=== PATIENT | female | born 1995 | race African-American/Black ===

== ENCOUNTER 2017-03-04 14:18 | Outpatient (CLI) | payer MEDICAID ==
[2017-03-04 15:44] VITALS: BP 101/64
[2017-03-04 15:55] LABS: BASOPHILS # (AUTO) 0.1 10^3/uL (0.0-0.1); BASOPHILS % (AUTO) 0.9 %; EOSINOPHILS # (AUTO) 0.1 10^3/uL (0.0-0.7); EOSINOPHILS % (AUTO) 0.8 %; HCT - HEMATOCRIT 36.5 % (37.0-47.0); HGB - HEMOGLOBIN 12.1 g/dL (12.0-16.0); LYMPHOCYTES # (AUTO) 1.3 10^3/uL (1.5-3.5); LYMPHOCYTES % (AUTO) 17.9 %; MEAN CORPUSCULAR HEMOGLOBIN 28.4 pg (27.0-31.0); MEAN PLATELET VOLUME 9.3 fL (7.9-10.8); MONOCYTES # (AUTO) 0.8 10^3/uL (0.0-1.0); MONOCYTES % (AUTO) 10.5 %; NEUTROPHILS # (AUTO) 5.1 10^3/uL (1.5-6.6); NEUTROPHILS % (AUTO) 69.9 %; NUCLEATED RED BLOOD CELLS AUTO 0.1 /100WBC; RED BLOOD COUNT 4.25 10^6/uL (4.20-5.40); RED CELL DISTRIBUTION WIDTH 14.6 % (12.0-15.0); UNCORRECTED WHITE BLOOD COUNT 7.3 x10^3/uL; WHITE BLOOD COUNT 7.3 x10^3/uL (4.8-10.8)
[2017-03-04 16:14] LABS: PLATELET ESTIMATE, MANUAL NORMAL (130-450,000) (NORMAL); PLATELET MORPHOLOGY 1+ LARGE PLATELETS (NORMAL)
[2017-03-04 16:24] LABS: BILIRUBIN,URINE NEGATIVE (NEGATIVE); UA w/ MICROSCOPIC CHARGE YES
[2017-03-04 16:35] LABS: UR CULTURE IF IND INDICATED
--- NOTE | 2017-03-04 17:52 | Ultrasound Preliminary Report ---
Exam: US OB Limited IMPRESSION: 1. Single live intrauterine gestation in cephalic presentation. Estimated sonographic age by biometry 37 weeks 1 day. Estimated weight 3427 g. 2. Amniotic fluid index is 11 cm. [facility] SITE ID: [id number]
--- NOTE | 2017-03-04 17:55 | Ultrasound Report ---
EXAM: THIRD TRIMESTER OBSTETRIC ULTRASOUND EXAM DATE: 03/04/2017 04:47 PM. CLINICAL HISTORY: Late care. COMPARISON: None. TECHNIQUE: Real-time scanning performed with static images. Both color-flow and Doppler technology we re utilized. FINDINGS: Fetus: Single live intrauterine gestation. Presentation: Cephalic. Heart Rate: 111 beats per minute. Placenta: Posterior position. No placenta previa or abruption. Amniotic Fluid Index (ROBERTO): 11 cm (normal 8-25). Biometry: Bi-parietal diameter (BPD): 8.9 cm = 35.9 weeks. Head circumference (HC): 32.2 cm = 36.5 weeks. Abdominal circumference (AC): 34.8 cm = 38.7 weeks. Femur length (FL): 7.7 cm = 36.5 weeks. Dates: Composite gestational age (this exam): 37 weeks 1 days (EDC 03/24/2017) Estimated weight: 3427 gm. Anatomic Survey: A complete survey was not performed on this exam. Anatomic evaluation was limited secondary to the age, but demonstrates no definite abnormalities. Maternal Structures: Cervix: Long and closed measuring 2.7 cm IMPRESSION: 1. Single live intrauterine gestation in cephalic presentation. Estimated sonographic age by biometry 37 weeks 1 day. Estimated weight 3427 g. 2. Amniotic fluid index is 11 cm. [facility] Referring Provider Line: [phone] SITE ID: [id number]
--- NOTE | 2017-03-05 06:33 | HISTORY & PHYSICAL EXAMINATION ---
DATE OF ADMISSION: 03/04/2017 IDENTIFICATION: The patient is a 22-year-old G4, P2, AB1 female whose EDC was 08 March determined by ultrasound early in her . This was all historical by patient. She is currently 39 weeks and 3/7. CHIEF COMPLAINT: Contractions as well as pelvic pressure. HISTORY OF PRESENT ILLNESS: The patient states that roughly 1700 she developed contractions yesterday. These became progressively stronger. She had some spotting which was noted to be red, progressed to brown, but resolved roughly at 1 o'clock. She also complained of pelvic pressure which has continued. She denies any spontaneous rupture of membranes. She notes good motion. She has recently moved here to [place] and she resides there. She started her OB care in [place] and has seen 2 physicians up to this time. She was also seen in [place] during her . We have attempted to reach these offices, but have been unsuccessful. The patient reports a due date of 08 March. She was seen early on in her . She has a history of having bacterial vaginosis and received what appears to be MetroGel on the 15 of February. She boarded the [employer] from the to the 27 of February at which time she arrived here in [place]. She is currently staying with her in [facility], [place]. We have attempted to obtain labs, as well as ultrasound, but at this point had been unsuccessful. The patient relates her 2 previous pregnancies have been unremarkable. Her infants weighed anywhere from 7 pounds 2 ounces to 6.9 ounces. PAST MEDICAL HISTORY: Her past medical history is positive for scoliosis. SURGICAL HISTORY: None. ALLERGIES: None known. CURRENT MEDICATIONS: vitamins. HABITS: The patient denies the use of alcohol, tobacco, or street or addictive drugs. SOCIAL HISTORY: The patient is currently unmarried, but lives with her boyfriends parents here in [place]. Her first was complicated with a heart murmur and was seen by perinatology. Her second was also noted to have some swelling of the kidneys. REVIEW OF SYSTEMS: Negative. She wears glasses for corrective vision. She denies any difficulty with heart, lungs, GI, or . Her vital signs are noted to be stable. She has not shown any hypertensive episodes. PHYSICAL EXAMINATION: Well-developed, well-nourished white female appears to be somewhat slight in build. HEENT: Pupils are equal, round, extraocular muscles are intact. No evidence of any scleral icterus. HEART: Regular rate and rhythm, without murmurs. LUNGS: Lung neves are clear without rales or wheezes. BACK: No spinal or CVA tenderness noted. Mild scoliosis is noted. CERVIX: By nursing was noted to be 40% effaced, closed, vertex. DTR's are noted to be 2+ without evidence of any clonus. LABORATORIES: CBC today shows a white count of 7.3, hemoglobin is 12.1, hematocrit 36.5, platelets are 155. Blood bank shows her to be O positive. She has had a GBS done which is a rapid test. At this point it is noted to be negative. Rubella, as well as HIV are currently pending at this time. The patient underwent an ultrasound and a preliminary report shows evidence of an infant which is 3427 grams, the HC and BPD are noted to be a little bit smaller, but this is noted to be a limited view. The BPD is 35.9 weeks, the HC is 36.5 weeks, abdominal circumference is 38.7 weeks and femur length is 36.5. The amniotic fluid index is 11.4, placenta is posterior and nonprevia. Cervical length is 2.7 cm. The remainder of report is pending at this time. The average gestational age is 37.1 weeks. IMPRESSION: 1. A 22-year-old G4, P2, AB1 female, EDC 08 March by history with confirming ultrasound. 2. No previous records available at this time. 3. Reactive nonstress test with negative contraction test. PLAN: 1. Will continue to try and reach her OB records from her previous clinics. The patient is instructed to make a followup appointment in the [facility] for further OB care. She is to call first thing tomorrow morning. She has been cautioned should she develop strong contractions or rupture of membranes that she should contact the clinic immediately. JOB #: [id number] EXT JOB #:[id number] MTDJesus
--- NOTE | 2017-03-06 00:50 | Labor Flowsheet ---
Labor Flowsheet Datetime Report Generated by CPN: 03/06/2017 00:50 Datetime: 03/04/2017 16:09 Pulse: 63 SpO2 (%): 100 Datetime: 03/04/2017 14:40 VITAL SIGNS NBP Sys/Padmini/Mean (mmHg): 101 : 64 : 72
== END 2017-03-04 18:20 | disposition home or self-care (01) ==
LOC: WFO 14:18 → FBP 14:22 → WFO 18:20
PROVIDERS: ATTEND Obstetrics & Gynecology
DX: Z34.83 Encounter for supervision of other normal pregnancy, third trimester (principal)
CPT/HCPCS: 36415; 76815; 80306; 81001; 81003; 85025; 86762; 86780; 86900; 86901; 87086; 87340; 87389; 87491; 87591; 87797; 99214

== ENCOUNTER 2017-03-09 16:07 | Outpatient (CLI) | payer MEDICAID | END 2017-03-09 16:08 | disposition critical access hospital (66) | LOC: EMS 16:07 | PROVIDERS: ATTEND Surgery | DX: O72.1 Other immediate postpartum hemorrhage (principal) | CPT/HCPCS: A0425; A0427 ==

== ENCOUNTER 2017-03-09 16:23 | Inpatient (IN) | payer MEDICAID ==
[2017-03-09] MEDS ORDERED: SODIUM CHLORIDE 0.9% 1,000 ML IV ONE (16:37)
[2017-03-09 16:43] LABS: BASOPHILS # (AUTO) 0.1 10^3/uL (0.0-0.1); BASOPHILS % (AUTO) 0.9 %; EOSINOPHILS % (AUTO) 0.4 %; HCT - HEMATOCRIT 35.9 % (37.0-47.0); HGB - HEMOGLOBIN 11.7 g/dL (12.0-16.0); LYMPHOCYTES % (AUTO) 15.8 %; MEAN CORPUSCULAR HEMOGLOBIN 28.4 pg (27.0-31.0); MEAN CORPUSCULAR HGB CONC 32.5 g/dL (32.0-36.0); MEAN CORPUSCULAR VOLUME 87.4 fL (81.0-99.0); MEAN PLATELET VOLUME 9.6 fL (7.9-10.8); MONOCYTES # (AUTO) 0.9 10^3/uL (0.0-1.0); MONOCYTES % (AUTO) 6.7 %; NEUTROPHILS # (AUTO) 9.7 10^3/uL (1.5-6.6); NEUTROPHILS % (AUTO) 76.2 %; NUCLEATED RED BLOOD CELLS AUTO 0.1 /100WBC; RED BLOOD COUNT 4.11 10^6/uL (4.20-5.40); RED CELL DISTRIBUTION WIDTH 14.9 % (12.0-15.0); UNCORRECTED WHITE BLOOD COUNT 12.8 x10^3/uL; WHITE BLOOD COUNT 12.8 x10^3/uL (4.8-10.8)
--- NOTE | 2017-03-09 16:44 | ED Physician Documentation ---
History of Present Illness - Stated complaint Stated Complaint: COMPLICATION - Chief complaint Chief Complaint: General - Additonal information Additional information: hx from pt, OB doc, OB note, and EMS 22 EGA 40+1 delivered at home, baby girl per EMS baby wasnot breathing and no pulse when they arrived but was easily resuscitated after baby and placenta delivered, pt developed very heavy hemorrhage EMS could not get a BP and pt had ALOC EMS performed uterine massage and bleedign had slowed upon arrival placenta appeared intact per EMS EMS caled and gave ER advance warning so OB, L&D nursery pharm, lab etc were all ready and waiting when pt arrived pt is still altered but states no PMHx, no meds, no all per OB noted her prior OB care was in [place] and [place] and pt arrived to [facility] 2 weeks ago by bus from [place], saw Dr Ramesh once, old records were requested but not received, had labs sent but not resulted yet, Review of Systems Unable to obtain: Other (altered LOC) : reports: Vaginal bleeding PD PAST MEDICAL HISTORY - Past Medical History Past Medical History: Yes Other Past Medical History: scoliosis - Past Surgical History Past Surgical History: No - Present Medications Home Medications: Ambulatory Orders Medication Instructions Recorded Confirmed Vit Calc,Iron,Folic 1 tab DAILY 03/09/17 03/09/17 [ Vitamins] - Allergies Allergies/Adverse Reactions: Allergies Allergy/AdvReac Type Severity Reaction Status Date / Time No Known Drug Allergies Allergy Unverified 03/09/17 16:32 - Social History Does the pt smoke?: No Smoking Status: Never smoker Does the pt drink ETOH?: No Does the pt have substance abuse?: No PD ED PE NORMAL - Vitals Vital signs reviewed: Yes - General General: Other (thin young female with). No: Alert and oriented X 3 (nods yes and no and waves her hand but not answering questions verbally) - HEENT HEENT: Atraumatic - Cardiac Cardiac: RRR - Respiratory Respiratory: No respiratory distress, Clear bilaterally - Abdomen Abdomen: Other (Dr Ramesh massaging uterus and evaluating vag bleeding) - Female Female : Other (per Dr Ramesh no lac seen but he will perform further pelvic in L&D) - Neuro Neuro: No: Alert and oriented X 3 Results - Vitals Vitals: Vital Signs - 24 hr 03/09/17 03/09/17 03/09/17 16:28 16:37 16:42 Heart Rate 75 76 77 Respiratory 23 35 H 23 Rate Blood Pressure 122/75 105/69 108/70 O2 Saturation 99 100 100 03/09/17 03/09/17 03/09/17 16:46 16:50 17:00 Heart Rate 72 92 65 Respiratory 24 26 H 23 Rate Blood Pressure 108/70 115/73 103/73 O2 Saturation 100 100 100 Oxygen O2 Source Nasal cannula - EKG (time done) 1635 Rate: Rate (enter#) Rhythm: NSR [place]: Normal Intervals: Normal WI Ischemia: Normal ST segments - Labs Labs: Laboratory Tests 03/09/17 03/09/17 03/09/17 16:29 16:29 16:29 WBC 12.8 H RBC 4.11 L Hgb 11.7 L Hct 35.9 L MCV 87.4 MCH 28.4 MCHC 32.5 RDW 14.9 Plt Count 171 MPV 9.6 Neut # 9.7 H Lymph # 2.0 [place] # 0.9 Eos # 0.0 Baso # 0.1 Absolute Nucleated RBC 0.01 Nucleated RBCs 0.1 PT 10.8 INR 1.0 APTT 22.8 L Sodium 138 Potassium 3.5 Chloride 105 Carbon Dioxide 22 Anion Gap 11.0 BUN 6 Creatinine 0.6 Estimated GFR (MDRD) 153 Glucose 100 Calcium 8.8 Total Bilirubin 0.8 AST 22 ALT 15 Alkaline Phosphatase 114 Total Protein 6.6 L Albumin 3.0 L Globulin 3.6 Albumin/Globulin Ratio 0.8 L Lipase 19 L Blood Type Antibody Screen Crossmatch IS Only 03/09/17 16:29 WBC RBC Hgb Hct MCV MCH MCHC RDW Plt Count MPV Neut # Lymph # [place] # Eos # Baso # Absolute Nucleated RBC Nucleated RBCs PT INR APTT Sodium Potassium Chloride Carbon Dioxide Anion Gap BUN Creatinine Estimated GFR (MDRD) Glucose Calcium Total Bilirubin AST ALT Alkaline Phosphatase Total Protein Albumin Globulin Albumin/Globulin Ratio Lipase Blood Type O POSITIVE Antibody Screen NEGATIVE Crossmatch IS Only See Detail PD MEDICAL DECISION MAKING - ED course ED course: OB and staff present upon arrival bleeding had slowed Dr Ramesh evaluated placenta and it appears intact pt was given pitocin labs drawn IV X 2 and IVF given pt type screen/type and cross pt stable and to be admitetd to L&D for further eval Departure - Departure Disposition: 66 [facility] DC/Xfer Clinical Impression: hemorrhage Qualifiers: hemorrhage type: unspecified Qualified Code(s): O72.1 - Other immediate hemorrhage Condition: Fair Discharge Date/Time: 03/09/17 18:00
[2017-03-09] MEDS: OXYTOCIN/LACTATED RINGERS 250 ML IV SCH (17:00)
[2017-03-09 17:05] LABS: ALBUMIN/GLOBULIN RATIO 0.8 (1.0-2.2); BILIRUBIN,TOTAL 0.8 mg/dL (0.2-1.0); CALCIUM 8.8 mg/dL (8.5-10.3); CREATININE 0.6 mg/dL (0.4-1.0); POTASSIUM 3.5 mmol/L (3.5-5.0); TOTAL PROTEIN 6.6 g/dL (6.7-8.2)
[2017-03-09 17:17] LABS: PT - PROTHROMBIN TIME 10.8 secs (9.9-12.6)
[2017-03-09 17:24] LABS: PARTIAL THROMBOPLASTIN TIME 22.8 secs (24.9-33.3)
[2017-03-09] MEDS ORDERED: SODIUM CHLORIDE FLUSH 0.9% 10 ML SYRINGE IVP PRN (17:25)
[2017-03-09] MEDS: LACTATED RINGERS 1,000 ML IV SCH (19:00)
[2017-03-09 20:32] LABS: BILIRUBIN,URINE NEGATIVE (NEGATIVE); PH,URINE 6.5 PH (5.0-7.5)
[2017-03-09] MEDS: IBUPROFEN 600 MG TABLET PO SCH (20:34)
--- NOTE | 2017-03-09 20:41 | HISTORY & PHYSICAL EXAMINATION ---
Admit History - Instructions [place]/Slash: -Left hand click circles element as positive or present. -Right hand click slashes element as negative or not present. - Visit Reason Visit Reason: Other (Delivery of live female infant at home Pt is a 22 YO Ab1 due 08 march 2017. EMT were called to where she was staying this afternoonWhere she had delivered with the attendence of her boyfriend's mother. When the carroter arrived she had already delivered. The baby was resusitaterd at the house and then she and the baby were transported to [facility]. Inroute she became unresponsive adn developed heavy vaginal bleeding. She delivered the placenta inroute. Upon arrival Apperaed to be disaccociated. VS were normal with out tachycasrdia and normal BP. Placenta was inspected and noted to be intact.) - Risk/History: positive: No care, High risk (Pt didn't call 911 dispite developing contractions early this AM or when her contractions became strong at noon.) Smoking Status: Never smoker - Mother's Labs Mother's RH: positive: Positive GBS: positive: Group B Step Negative Meds/Allgy - Home Medications Home Medications: Ambulatory Orders Medication Instructions Recorded Confirmed Vit Calc,Iron,Folic 1 tab DAILY 03/09/17 03/09/17 [ Vitamins] - Allergies Allergies/Adverse Reactions: Allergies Allergy/AdvReac Type Severity Reaction Status Date / Time No Known Drug Allergies Allergy Unverified 03/09/17 16:32 Physical - Abdominal Exam Vital Signs: Temp Pulse Resp BP Pulse Ox 37.4 C 76 15 103/70 100 03/09/17 19:10 03/09/17 19:10 03/09/17 19:10 03/09/17 19:10 03/09/17 19:10 Contraction Intensity: positive: Other ( uterus firm at U.) Uterine Resting Tone: positive: Hard - Other Notes Labor Progress Note/Additional Text: Pt delivered at home. She was seen [place] February at which time a full H&P was done and a full panel was drawn.
[2017-03-09 20:43] LABS: UA w/ MICROSCOPIC CHARGE YES
--- NOTE | 2017-03-09 20:49 | DELIVERY NOTE ---
Delivery Note - Labor Labor: positive: Other (Pt delivered at home without medical attendence) - Infant Delivery Method Infant Delivery Method: positive: Spontaneous vaginal delivery - Presentation Presentation: positive: Vertex - Nuchal Cord Nuchal Cord: positive: Present (Boyfriends mother reporta a nucal cord at time of delivery) - Anesthetic Anesthetic Type: - Amniotic Fluid Description Amniotic Fluid Description: positive: Other (unknown) - Episiotomy Type Episiotomy Type: positive: None - Laceration Laceration: positive: None (minimal) - Delivery Outcome Delivery Outcome: positive: Livebirth (upon arrival was 9. Wt 7lb 6 oz) - [place]: positive: Stimulated (stimulated by boyfriend's mother. EMT PPV) sex: positive: Female - Cord Cord: positive: 3 vessels - Placenta Placenta: positive: Intact, Spontaneous
[2017-03-09] MEDS ORDERED: HYDROCORTISONE/PRAMOXINE 10 GM PR PRN (20:52)
[2017-03-09] MEDS ORDERED: WITCH HAZEL/GLYCERIN 1 EACH MED..PAD TOP PRN (20:52)
[2017-03-09 21:00] LABS: UR CULTURE IF IND NOT INDICATED; WBC,URINE 0-3 /HPF (0-5)
[2017-03-09] MEDS: oxyCODONE 5 MG TABLET PO PRN (22:12)
[2017-03-09] MEDS: SODIUM CHLORIDE FLUSH 0.9% 10 ML SYRINGE IVP SCH (23:42)
[2017-03-10] MEDS: IBUPROFEN 600 MG TABLET PO SCH ×4 (01:49→20:01)
[2017-03-10] MEDS: LACTATED RINGERS 1,000 ML IV SCH ×3 (01:50→17:50)
[2017-03-10] MEDS: oxyCODONE 5 MG TABLET PO PRN ×2 (05:29→09:14)
[2017-03-10 06:20] LABS: BASOPHILS # (AUTO) 0.1 10^3/uL (0.0-0.1); BASOPHILS % (AUTO) 0.4 %; EOSINOPHILS # (AUTO) 0.1 10^3/uL (0.0-0.7); HGB - HEMOGLOBIN 9.8 g/dL (12.0-16.0); MEAN CORPUSCULAR HEMOGLOBIN 28.9 pg (27.0-31.0); NEUTROPHILS # (AUTO) 10.5 10^3/uL (1.5-6.6)
[2017-03-10 06:23] LABS: EOSINOPHILS % (AUTO) 0.5 %; HCT - HEMATOCRIT 29.8 % (37.0-47.0); LYMPHOCYTES % (AUTO) 14.5 %; MEAN CORPUSCULAR HGB CONC 32.9 g/dL (32.0-36.0); MEAN CORPUSCULAR VOLUME 87.8 fL (81.0-99.0); MEAN PLATELET VOLUME 9.6 fL (7.9-10.8); MONOCYTES # (AUTO) 1.2 10^3/uL (0.0-1.0); NEUTROPHILS % (AUTO) 75.6 %; RED CELL DISTRIBUTION WIDTH 14.7 % (12.0-15.0); UNCORRECTED WHITE BLOOD COUNT 13.9 x10^3/uL; WHITE BLOOD COUNT 13.9 x10^3/uL (4.8-10.8)
--- NOTE | 2017-03-10 08:50 | PROVIDER PROGRESS NOTE ---
Subjective - Prog Note Date Prog Note Date: 03/10/17 Prog Note Time: 08:46 - Subjective Pt reports feeling: Improved (Pt notes Pain 3/10. Breast feeding. notes cramping. Pt came here to be wiht the babies father but he is not to arrive here for the next 2-3 months. Pt was planning to deliver here but her boyfriend 's mother didn't get off work until to late) Objective - Vital Signs/Intake & Output Reviewed Vital Signs: Yes Vital Signs: Vital Signs x48h Temp Pulse Resp BP Pulse Ox 03/10/17 07:00 36.7 C 69 18 110/56 L 97 03/10/17 05:23 36.8 C 68 16 109/53 L 03/10/17 01:41 37 C 75 18 105/59 L 96 Intake & Output: Intake & Output 03/07/17 03/08/17 03/09/17 03/10/17 23:59 23:59 23:59 23:59 Intake Total 3300 1000 Output Total 1400 Balance 1900 1000 - Objective General Appearance: positive: No acute distress, Alert Respiratory: positive: Chest non-tender, No respiratory distress, Breath sounds nml Cardiovascular: positive: Regular rate & rhythm, No murmur, No gallop Extremities: positive: Non-tender. negative: Doris's sign/cords Neurologic/Psychiatric: positive: Oriented x3 - Lab Results Fish Bones: 03/10/17 05:34 03/09/17 16:29 Other Labs: Lab Results x24hrs 03/10/17 03/09/17 Range/Units 05:34 18:50 WBC 13.9 H (4.8-10.8) x10^3/uL RBC 3.40 L (4.20-5.40) 10^6/uL Hgb 9.8 L (12.0-16.0) g/dL Hct 29.8 L (37.0-47.0) % MCV 87.8 (81.0-99.0) fL MCH 28.9 (27.0-31.0) pg MCHC 32.9 (32.0-36.0) g/dL RDW 14.7 (12.0-15.0) % Plt Count 147 (130-450) 10^3/uL MPV 9.6 (7.9-10.8) fL Neut # 10.5 H (1.5-6.6) 10^3/uL Lymph # 2.0 (1.5-3.5) 10^3/uL Clinch # 1.2 H (0.0-1.0) 10^3/uL Eos # 0.1 (0.0-0.7) 10^3/uL Baso # 0.1 (0.0-0.1) 10^3/uL Absolute Nucleated RBC 0.00 x10^3/uL Nucleated RBCs 0.0 /100WBC Urine Color YELLOW Urine Clarity HAZY (CLEAR) Urine pH 6.5 (5.0-7.5) PH Ur Specific [place] <=1.005 (1.002-1.030) Urine Protein NEGATIVE (NEGATIVE) mg/dL Urine Glucose (UA) NEGATIVE (NEGATIVE) mg/dL Urine Ketones NEGATIVE (NEGATIVE) mg/dL Urine Occult Blood LARGE H (NEGATIVE) Urine Nitrite NEGATIVE (NEGATIVE) Urine Bilirubin NEGATIVE (NEGATIVE) Urine Urobilinogen 0.2 (NORMAL) (NORMAL) E.U./dL Ur Leukocyte Esterase NEGATIVE (NEGATIVE) Urine RBC TNTC H (0-5) /HPF Urine WBC 0-3 (0-5) /HPF Ur Squamous Epith Cells NONE SEEN (<= Few) Urine Bacteria None Seen (None Seen) /HPF Ur Microscopic Review INDICATED Urine Culture Comments NOT INDICATED Urine Opiates Screen NEGATIVE (NEGATIVE) Ur Oxycodone Screen NEGATIVE (NEGATIVE) Urine Methadone Screen NEGATIVE (NEGATIVE) Ur Propoxyphene Screen NEGATIVE (NEGATIVE) Ur Barbiturates Screen NEGATIVE (NEGATIVE) Ur Tricyclics Screen NEGATIVE (NEGATIVE) Ur Phencyclidine Scrn NEGATIVE (NEGATIVE) Ur Amphetamine Screen NEGATIVE (NEGATIVE) U Methamphetamines Scrn NEGATIVE (NEGATIVE) U Benzodiazepines Scrn NEGATIVE (NEGATIVE) Urine Cocaine Screen NEGATIVE (NEGATIVE) U Cannabinoids Screen NEGATIVE (NEGATIVE) Assessment/Plan - Problem List (1) Vaginal delivery Impression: Pt is doing well. Progressing well Registered Radiographer contacted. will continue to monitor
[2017-03-10] MEDS: SODIUM CHLORIDE FLUSH 0.9% 10 ML SYRINGE IVP SCH ×2 (11:05→17:50)
[2017-03-10] MEDS ORDERED: DOCUSATE SODIUM 100 MG CAPSULE PO ONE (13:41)
[2017-03-10] MEDS: DOCUSATE SODIUM 100 MG CAPSULE PO SCH ×2 (13:55→20:01)
[2017-03-10] MEDS: OXYTOCIN/LACTATED RINGERS 250 ML IV SCH (17:49)
[2017-03-11] MEDS: ACETAMINOPHEN 325 MG TABLET PO PRN ×2 (00:07→08:17)
[2017-03-11] MEDS: oxyCODONE 5 MG TABLET PO PRN (00:08)
[2017-03-11] MEDS: SODIUM CHLORIDE FLUSH 0.9% 10 ML SYRINGE IVP SCH ×2 (01:32→06:23)
[2017-03-11] MEDS: LACTATED RINGERS 1,000 ML IV SCH ×3 (01:32→10:40)
[2017-03-11] MEDS: IBUPROFEN 600 MG TABLET PO SCH ×2 (02:04→08:17)
[2017-03-11] MEDS: DOCUSATE SODIUM 100 MG CAPSULE PO SCH (08:17)
[2017-03-11 08:25] VITALS: BP 105/59
--- NOTE | 2017-03-11 08:52 | PROVIDER PROGRESS NOTE ---
Subjective - Prog Note Date Prog Note Date: 03/11/17 Prog Note Time: 08:50 - Subjective Pt reports feeling: Improved (Pt is doing well. pain 11/16. pt states that she is having good pain control. notes cramping with breast feeding) Objective - Vital Signs/Intake & Output Reviewed Vital Signs: Yes Vital Signs: Vital Signs x48h Temp Pulse Resp BP Pulse Ox 03/11/17 08:23 36.6 C 71 16 105/59 L 100 03/11/17 04:30 37.1 C 69 18 104/61 99 Intake & Output: Intake & Output 03/08/17 03/09/17 03/10/17 03/11/17 23:59 23:59 23:59 23:59 Intake Total 3300 1900 Output Total 1400 Balance 1900 1900 - Objective General Appearance: positive: No acute distress, Alert Respiratory: positive: Chest non-tender Cardiovascular: positive: Regular rate & rhythm Abdomen: positive: Non-tender, Mass (u-1) Neurologic/Psychiatric: positive: Oriented x3 - Lab Results Fish Bones: 03/10/17 05:34 03/09/17 16:29 Assessment/Plan - Problem List (1) Vaginal delivery Impression: reviewed breast feeding, watch for mastitis. Pt informed that breast feeding is not adiquite contraception. Pt offered contraception. Pt refused. Discharge medication Motrin 600 mg
--- NOTE | 2017-03-11 09:03 | Discharge Plan ---
Discharge Plan Disposition: 01 Home, Self Care Condition: Good Diet: Regular Activity Restrictions: pelvic rest 6 wks Shower Restrictions: No Driving Restrictions: No Weight Bearing: Full Weight No Smoking: If you smoke, Please STOP! Call for help.
[2017-03-11] MEDS ORDERED: MEASLES,MUMPS & RUBELLA VACC 0.5 ML VIAL SUBQ ONE (11:00)
== END 2017-03-11 12:15 | disposition home or self-care (01) | DRG 776 ==
LOC: EDUNIT# → ED 16:23 → FBP 17:25
PROVIDERS: ADMIT Obstetrics & Gynecology; ATTEND Obstetrics & Gynecology
DX: O72.2 Delayed and secondary postpartum hemorrhage (principal); O41.1230 Chorioamnionitis, third trimester, not applicable or unspecified
CPT/HCPCS: 36415; 80053; 80306; 81001; 81003; 83690; 85025; 85610; 85730; 86850; 86900; 86901; 86920; 87086; 88307; 93005; 96374; 99283; 99285